=== PATIENT | female | born 1995 | race Two or more races ===

== ENCOUNTER 2025-07-29 12:26 | Emergency (ER) | payer OTHER ==
[~2025-07-29] VITALS: Ht 172.7 cm; Wt 99.3 kg
[2025-07-29 13:37] VITALS: BP 127/87; O2SAT 100
[2025-07-29] MEDS ORDERED: COZAAR25 MG PO (13:41)
[2025-07-29] MEDS ORDERED: ZEPBOUND7.5 MG/0.5 IV (13:42)
[2025-07-29] MEDS ORDERED: SYNTHROID50 MCG PO (13:42)
[2025-07-29] MEDS ORDERED: DEXAMETHASONE SODIUM PHOSPHATE 4 MG/ML VIAL IM STA (14:05)
[2025-07-29] MEDS ORDERED: GUAIFENESIN 200 MG/10 ML BLIST.PACK PO ONE (14:15)
[2025-07-29] MEDS ORDERED: ACETAMINOPHEN 500 MG GEL..CAP PO ONE ×2 (14:15→16:29)
[2025-07-29] MEDS ORDERED: CETIRIZINE HCL 10 MG TABLET PO ONE (14:15)
[2025-07-29] MEDS ORDERED: CETIRIZINE HCL 5MG/5ML BLIST.PACK PO ONE (16:29)
[2025-07-29] MEDS ORDERED: DEXAMETHASONE SODIUM PHOSPHATE 4 MG/ML VIAL ONE (16:29)
[2025-07-29] MEDS ORDERED: GUAIFENESIN/DEXTROMETHORPHAN 100MG/10ML BLIST.PACK PO ONE (16:30)
[2025-07-29 16:59] LABS: BASO % 0.6 % (0.1-1.2); EOS # 0.04 (0.04-0.54); EOS % 0.8 % (0.7-7.0); LYMPH # 0.71 (1.18-3.74); LYMPH % 14.1 % (19.3-53.1); MEAN PLATELET VOLUME 9.10 fl (9.4-12.4); MONO # 0.43 (0.24-0.82); MONO % 8.5 % (4.7-12.5); NEUT # 3.83 (1.56-6.13); NEUT % 75.8 % (34.0-71.1); RED CELL DISTRIBUTION WIDTH 14.5 % (11.6-14.4)
[2025-07-29 17:52] LABS: COVID-19 AG NEGATIVE (NEGATIVE)
[2025-07-29] MEDS ORDERED: ZYRTEC10 M3 PO (18:54)
[2025-07-29] MEDS ORDERED: MUCINEX DM ER1 EAC1 PO (18:54)
[2025-07-29] MEDS ORDERED: OSEL75CA PO (18:54)
== END 2025-07-29 21:57 | disposition home or self-care (01) ==
LOC: ER 12:27
PROVIDERS: General Practice
DX: J10.1 Influenza due to other identified influenza virus with other respiratory manifestations (principal); E03.8 Other specified hypothyroidism; I10 Essential (primary) hypertension; Z20.822 Contact with and (suspected) exposure to COVID-19